=== PATIENT | female | born 1940 | race Caucasian/White ===

== ENCOUNTER 2018-05-04 00:27 | Emergency (ER) | payer OTHER, BC ==
[2018-05-04 00:43] VITALS: TEMP 98; BMI 30.7
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
--- NOTE | 2018-05-04 01:33 | PDOC ---
Attending Attestation - Resident Resident Name: ShereeGreg - ED Attending Attestation I have performed the following: I have examined & evaluated the patient, The case was reviewed & discussed with the resident, I agree w/resident's findings & plan, Exceptions are as noted - HPI HPI: 05/04/18 07:37 78F pmh HTN here with R shoulder pain after mechanical fall. She states that she struck her head 2/2 fall but her pain is primarily her shoulder. No loc, n/v , amnesia - Physicial Exam PE: 05/04/18 07:38 NCAT, NAD, AOx3 Neck supple R clavicle ttp over distal end with swelling/deformity, no crepitus - Medical Decision Making 05/04/18 07:39 pt refusing analgesia distal clavicle fracture on xr spoke with Dr. Driscoll who states that he will examine patient in ED before dispo
[2018-05-04] MEDS ORDERED: morphine CARPU-JECT 4 MG/1 ML DISP.SYRIN IVPUSH ONE (02:09)
[2018-05-04 06:34] VITALS: BP 153/87; PULSE 82
--- NOTE | 2018-05-04 07:41 | CONSULT ---
Consult - text type - Consultation Consultation Note: ORTHOPEDIC SURGERY CONSULTATION NOTE Department of Orthopedic Surgery HISTORY OF PRESENT ILLNESS Nirmala Hill is a 78 year old right hand dominant female who presents to [facility] ED with right shoulder pain after a mechanical fall. The orthopedic service was consulted for right clavicle fracture. The injury occurred last night. The patient notes sharp pain to right clavicle which improves with rest. She did hit her head during the fall. Denies any other injuries. Denies numbness , tingling or other constitutional complaints. The patient lives with family and uses no assistive devices at baseline. Past Medical History HTN Past Surgical History Bilateral knee replacement Medications atenolol, atorvastatin, and amlodipine Social History Smoking history Never smoked If you are a former smoker, 1986 when did you quit? Hx Alcohol Use No Denies tobacco, alcohol, substance abuse. Allergies Allergy/AdvReac Type Severity Reaction Status Date / Time No Known Allergies Allergy Verified 05/04/18 00:42 Vital Signs (last) Temp Pulse Resp BP Pulse Ox 98.0 F 82 17 153/87 97 05/04/18 00:42 05/04/18 04:40 05/04/18 04:40 05/04/18 04:40 05/04/18 04:40 Intake and Output 05/02/18 05/03/18 05/04/18 23:59 23:59 23:59 Other: Weight 168 lb Height 5 ft 2 in Body Mass Index (BMI) 30.7 Weight Measurement Method Est/Stated by Patient FAMILY HISTORY Reviewed and noncontributory REVIEW OF SYMPTOMS A twelve-point review of systems was performed and was negative except as noted in HPI. PHYSICAL EXAM Constitutional: Alert and oriented to person, place, and time. Appears well- developed and well-nourished. No acute distress, appropriate mood and affect. HEENT: Normocephalic, atraumatic Cardiovascular: Regular rate and rhythm, extremities warm, no cyanosis. Pulmonary: Breathing comfortably, normal air movement, no audible wheezing. Right Upper Extremity: Swelling over the right clavicle. Skin warm, dry, and intact; no signs of impending skin breakdown. Muscle mass equal and symmetric to contralateral side. Tender to palpation at right clavicle; nontender throughout rest of extremity. Shoulder range of motion deferred secondary to pain. Full passive and active ROM of elbow, wrist and fingers, free from pain. M /R/U/MSK/AX motor intact; SILT distally; 2+ radial pulses; Cap refill brisk. Tone and reflexes normal. Left Upper Extremity: No tenderness to palpation. Full passive and active ROM, free from pain. Right Lower Extremity: No tenderness to palpation. Full passive and active ROM, free from pain. Left Lower Extremity: No tenderness to palpation. Full passive and active ROM, free from pain. IMAGING I personally reviewed all radiographs. They demonstrate a mid-shaft clavicle fracture with mild displacement and shortening. ASSESSMENT AND PLAN Nirmala Hill is a 78 year old female presenting status post mechanical fall with a right sided clavicle fracture. We have reviewed the imaging and clinical findings in detail, as well as their potential implications. After appropriate informed discussion, the patient was placed in a sling. Patient was instructed regarding: non weight bearing on fractured side. needing to seek immediate care should new onset numbness, tingling, shortness of breath or significantly increasing pain occur. keeping the sling clean and dry. avoiding NSAID medications. All questions were answered. Thank you for involving our team in the care of this patient. Please have patient follow up in our office in 1-2 weeks . Adama Mcgraw, DO Orthopedic Surgery
== END 2018-05-04 08:05 | disposition home or self-care (01) ==
LOC: JER 00:27
DX: S42.034A Nondisplaced fracture of lateral end of right clavicle, initial encounter for closed fracture (principal); W01.0XXA Fall on same level from slipping, tripping and stumbling without subsequent striking against object, initial encounter; Y93.89 Activity, other specified; Y92.032 Bedroom in apartment as the place of occurrence of the external cause; Y99.8 Other external cause status; I10 Essential (primary) hypertension; E78.00 Pure hypercholesterolemia, unspecified; Z85.3 Personal history of malignant neoplasm of breast; Z96.651 Presence of right artificial knee joint
CPT/HCPCS: 70450-TC; 71046-TC-FY; 72125-TC; 73030-TC-RT-FY; 99281-25

== ENCOUNTER → 2018-12-19 | Day surgery (SDC) | payer OTHER, BC ==
--- NOTE | 2018-12-19 12:14 | OP ---
DATE OF OPERATION: 12/19/2018 PREOPERATIVE DIAGNOSIS: Abnormal left mammography. POSTOPERATIVE DIAGNOSIS: Abnormal left mammography. PROCEDURE: Left stereotactic needle biopsy with clip. SURGEON: Emma Portillo MD ANESTHESIA: Local. COMPLICATIONS: None. This was a sterile procedure. INDICATIONS FOR PROCEDURE: Patient presented with a screening mammogram that noted increasing microcalcifications in the upper outer retroareolar left breast. My recommendations was needle biopsy. The procedure was discussed with her, including need for a clip. PROCEDURE IN DETAIL: Patient was brought to [facility] in [place], laid prone on the Lor[place] table. Using a lateral approach, the calcifications in the upper outer left breast were identified. A stereo pair was obtained. A target was chosen. The area was anesthetized with 1% lidocaine. I used a petite needle to try to get cores from this; however, the core showed very minimal calcification, so I removed the needle and re-targeted and then went in again to take more samples. At this point, the calcifications were obtained and these were handled in the usual calcification protocol. A clip was deployed in the area. Hemostasis was assured with direct pressure. The incision was closed with Steri-Strips. She tolerated the procedure well, left the [facility] in good condition. EMMA PORTILLO M.D. [id number]
--- NOTE | 2018-12-21 12:32 | PATH ---
Surgical Pathology Report Patient Name: CLAUDIA PAL [facility]. Rec. #: [id number] /Age/Gender: 1940 (Age: 78) / F Account: [id number] Location: [facility] Taken: 12/19/2018 Received: 12/19/2018 Reported: 12/21/2018 Physicians: Emma Pro M.D. Specimen(s) Received A: LEFT BREAST SPECIMEN - WITH CALCIFICATIONS B: LEFT BREAST SPECIMEN - WITHOUT CALCIFICATIONS Clinical History Left breast calcifications Final Diagnosis A. BREAST, LEFT, WITH CALCIFICATIONS, STEREOTACTIC BIOPSY: BENIGN BREAST TISSUE SHOWING STROMAL FIBROSIS AND COLUMNAR CELL CHANGE. CALCIFICATIONS ARE PRESENT IN ASSOCIATION WITH COLUMNAR CELL CHANGE AND UNREMARKABLE GLANDULAR PARENCHYMA. B. BREAST, LEFT, WITHOUT CALCIFICATIONS, STEREOTACTIC BIOPSY: BENIGN BREAST TISSUE SHOWING STROMAL FIBROSIS AND CALCIFICATIONS IN ASSOCIATION WITH UNREMARKABLE GLANDULAR PARENCHYMA. Electronically Signed Elizabeth Hsu M.D. Gross Description A. Received in formalin, labeled "left breast with calcifications" are five cores of light wright tissue ranging from 0.8-1.2 cm in length with a diameter up to 0.3 cm, admixed with fibrofatty tissue and blood clot. Entirely submitted in two cassettes. B. Received in formalin, labeled "left breast without calcifications" is a 2.7 x 2 x 0.3 cm aggregate of light wright and yellow-wright tissue admixed with blood clot. Entirely submitted in two cassettes. AE/12/19/2018 ebram/12/19/2018
== END | disposition home or self-care (01) ==
LOC: FMAMMOTONE 09:50
PROVIDERS: ATTEND Surgery
PROC: 0HBU3ZX Excision of Left Breast, Percutaneous Approach, Diagnostic (ICD-10-PCS; principal; 2018-12-19)
DX: N60.32 Fibrosclerosis of left breast (principal); N64.89 Other specified disorders of breast; R92.8 Other abnormal and inconclusive findings on diagnostic imaging of breast
CPT/HCPCS: 19081; 87899; 88305-TC; A4648